=== PATIENT | male | born 1960 | race Caucasian/White ===

== ENCOUNTER 2018-07-29 21:38 | Emergency (ER) | payer OTHER ==
[2018-07-29] MEDS ORDERED: Ketorolac INJ* 60 MG/2 ML VIAL IM ONE (22:03)
[2018-07-29] MEDS ORDERED: oxyCODONE/Acetamin 5/325 MG* TAB PO ONE (22:03)
--- NOTE | 2018-07-29 22:04 | ED ---
Neck Pain - HPI Summary HPI Summary: This pt is a 57 y/o male presenting to [facility] via EMS for left sided neck pain that began a couple of days ago. Pt reports his pain is located on the left side of his neck radiating down his left shoulder. Denies any involvement of arm or hand. Pt states his pain began after he had done some painting. He denies any known trauma to his neck. Denies numbness, weakness, or tingling in UE, headache, nausea, vomiting, fever, chest pain. Pt has taken Motrin for his pain with mild relief. Pt has not had neck problems in the past. PMHx: PTSD for which he takes medications. No hx of HTN or DM. - History of Current Complaint Stated Complaint: NECK/SHLDR PAIN Time Seen by Provider: 07/29/18 21:48 Hx Obtained From: Patient Onset/Duration Of Injury/Symptoms: Days Mechanism Of Injury: No Known Trauma Timing: Lasting Days Onset/Duration: Started days ago, Still Present Severity Currently: Severe Pain Intensity: 7 Pain Scale Used: 0-10 Numeric Location: Discrete At: - left side of neck, Radiates To: - left shoulder Character: Aching Aggravating Factors: Movement Alleviating Factors: Nothing Associated Signs & Symptoms: Negative: Swelling, Redness, Bruising, Fever, Nuchal Rigity, Weakness, Headache, Paresthesia Related History: Other - after painting - Allergies/Home Medications Allergies/Adverse Reactions: Allergies Allergy/AdvReac Type Severity Reaction Status Date / Time MS Cephalexin [Cephalexin] Allergy Hives Verified 02/15/17 10:10 MS Erythromycin Allergy Rash Verified 02/15/17 10:10 [Erythromycin] MS Penicillins [Penicillins] Allergy Anaphylatic Verified 02/15/17 10:10 Shock MS Sulfa Drugs [Sulfa Drugs] Allergy Anaphylatic Verified 02/15/17 10:10 Shock MS Tetracyclines Allergy Rash Verified 02/15/17 10:10 [Tetracyclines] PMH/Surg Hx/FS Hx/Imm Hx Endocrine/Hematology History: Denies: Hx Diabetes, Hx Thyroid Disease Cardiovascular History: Denies: Hx Hypertension Respiratory History: Denies: Hx Asthma, Hx Chronic Obstructive Pulmonary Disease (COPD) GI History: Denies: Hx Ulcer Psychiatric History: Reports: Hx Post Traumatic Stress Disorder - Surgical History Surgery Procedure, Year, and Place: left/right shoulder Infectious Disease History: Denies: Hx Hepatitis, Traveled Outside the [place] in Last 30 Days - Family History Known Family History: Negative: Cardiac Disease - Social History Alcohol Use: None Substance Use Type: Reports: None Smoking Status (MU): Heavy Every Day Tobacco Smoker Type: Cigarettes Amount Used/How Often: 1 PPD Length of Time of Smoking/Using Tobacco: 30 yrs Review of Systems Negative: Fever, Chills Negative: Chest Pain Negative: Vomiting, Nausea Musculoskeletal: Other - neck pain Negative: Headache, Weakness, Paresthesia, Numbness All Other Systems Reviewed And Are Negative: Yes Physical Exam - Summary Physical Exam Summary: VITAL SIGNS: Reviewed. GENERAL: Patient is a well-developed and nourished male who is lying comfortable in the stretcher. Patient is not in any acute respiratory distress. HEAD AND FACE: No signs of trauma. No ecchymosis, hematomas or skull depressions. No sinus tenderness. EYES: PERRLA, EOMI x 2, No injected conjunctiva, no nystagmus. EARS: Hearing grossly intact. Ear canals and tympanic membranes are within normal limits. MOUTH: Oropharynx within normal limits. NECK: Supple, trachea is midline, no adenopathy, no JVD, no carotid bruit, no c- spine tenderness, neck with full ROM. CHEST: Symmetric, no tenderness at palpation LUNGS: Clear to auscultation bilaterally. No wheezing or crackles. CVS: Regular rate and rhythm, S1 and S2 present, no murmurs or gallops appreciated. ABDOMEN: Soft, non-tender. No signs of distention. No rebound no guarding, and no masses palpated. Bowel sounds are normal. EXTREMITIES: FROM in all major joints, no edema, no cyanosis or clubbing. NEURO: Alert and oriented x 3. No acute neurological deficits. Speech is normal and follows commands. SKIN: Dry and warm Triage Information Reviewed: Yes Vital Signs Reviewed: Yes Diagnostics - Laboratory Lab Statement: Any lab studies that have been ordered have been reviewed, and results considered in the medical decision making process. - CT Cervical spine CT CT Interpretation: No Acute Changes - IMPRESSION: No acute abnormality. Dr. Dorsey has reviewed this report. CT Interpretation Completed By: Radiologist Neck Course/Dx - Course Assessment/Plan: Pt is a 57 y/o male who presents to the ED for left sided neck pain that began a couple of days ago. Pt reports his pain is located on the left side of his neck radiating down his left shoulder. Denies any involvement of arm or hand. Pt states his pain began after he had done some painting. He denies any known trauma to his neck. Denies numbness, weakness, or tingling in UE, headache, nausea, vomiting, fever, chest pain. In the ED course the pt was given Toradol and Percocet. Cervical spine CT is negative. Pt will be discharged home with follow up from his PCP in 2 days. He was given prescriptions for Flexeril and Motrin. Pt was instructed to return to the ED for any worsening or new symptoms. - Diagnoses Provider Diagnoses: Neck pain, Muscle pain Discharge - Sign-Out/Discharge Documenting (check all that apply): Patient Departure - Discharge home - Discharge Plan Condition: Stable Disposition: HOME Prescriptions: Cyclobenzaprine TAB* [Flexeril 10 MG TAB*] 10 mg PO TID PRN #20 tab PRN Reason: Spasms - Muscle Ibuprofen TAB* [Motrin TAB* 800 MG] 800 mg PO Q6H PRN #30 tab PRN Reason: Pain Patient Education Materials: Neck Pain (ED) Referrals: Rut Mata NP [Primary Care Provider] - Additional Instructions: Please follow up with your primary care provider in 1-2 days. RETURN TO EMERGENCY DEPARTMENT FOR ANY NEW OR WORSENING SYMPTOMS. - Attestation Statements Document Initiated by Scribe: Yes Documenting Scribe: Randee Calvillo Provider For Whom Scribe is Documenting (Include Credential): Sandra Dorsey MD Scribe Attestation: Randee Baker, scribed for Sandra Dorsey MD on 07/30/18 at 0002.
--- NOTE | 2018-07-29 23:51 | RAD ---
EXAM: CT Cervical Spine Without Intravenous Contrast EXAM DATE/TIME: 07/29/2018 11:04 PM CLINICAL HISTORY: 57 years old, male; Pain; Radicular pain (radiculopathy); Cervicothoracic region; Patient HX: Neck pain and bilateral shoulder pain TECHNIQUE: Axial computed tomography images of the cervical spine without intravenous contrast. All CT scans at this facility use at least one of these dose optimization techniques: automated exposure control; mA and/or kV adjustment per patient size (includes targeted exams where dose is matched to clinical indication); or iterative reconstruction. Coronal and sagittal reformatted images were created and reviewed. COMPARISON: No relevant prior studies available. FINDINGS: Vertebrae: No acute fracture. Normal alignment. Soft tissues: Unremarkable. Thyroid: 1 cm right thyroid lobe nodule. Multilevel uncovertebral and facet hypertrophy with neural foramina narrowing. The multilevel degenerative disc disease. IMPRESSION: No acute abnormality. COMMENT: Consistent with the [employer]'s Incidental Findings Committee Report (J Am Joselyn Radiol 2014): Unless the patient's specific circumstances suggest otherwise, any thyroid nodule less than 1.0 cm not otherwise characterized in this report as possessing suspicious or indeterminate imaging features is highly likely to be benign and does not require follow-up imaging or biopsy. To contact [facility] with a general question: [facility] - [phone] For direct physician to physician contact: Physician Hotline - [phone] [facility] ([facility] Facility ID #[id number])
[2018-07-30 00:28] VITALS: BP 147/81
== END 2018-07-30 00:26 | disposition home or self-care (01) ==
LOC: ED 21:38
DX: M54.2 Cervicalgia (principal); M79.10 Myalgia, unspecified site; Z88.0 Allergy status to penicillin; F17.210 Nicotine dependence, cigarettes, uncomplicated
CPT/HCPCS: 72125; 96372; 99283; A9270-GY; J1885